=== PATIENT | male | born 1970 | race Caucasian/White ===

== ENCOUNTER → 2018-07-30 | Outpatient (REF) ==
[2018-07-30 14:00] LABS: ALBUMIN 2.7 GM/DL (3.2-5.2); BILIRUBIN,TOTAL 0.5 MG/DL (0.2-1.0); C REACTIVE PROTEIN QUANTITATIV 14.3 MG/DL (0.00-0.30); CALCIUM LEVEL 8.1 MG/DL (8.5-10.1); CREATININE FOR GFR 1.4 MG/DL (0.70-1.30); GLOMERULAR FILTRATION RATE 58.1 (>60); POTASSIUM SERUM 3.9 MEQ/L (3.5-5.1); TOTAL PROTEIN 7.2 GM/DL (6.4-8.2)
== END ==
LOC: M LAB REF 07:50
DX: Z00.00 Encounter for general adult medical examination without abnormal findings (principal)

== ENCOUNTER → 2021-04-18 | Outpatient (REF) | payer MEDICARE, MEDICAID | LOC: M LAB REF 13:53 | PROVIDERS: ATTEND Dermatology | DX: D22.4 Melanocytic nevi of scalp and neck (principal) ==

== ENCOUNTER → 2021-04-20 | Outpatient (CLI) | payer MEDICARE, MEDICAID | LOC: M SLEEP 20:00 | PROVIDERS: ATTEND Physician Assistant | DX: G47.33 Obstructive sleep apnea (adult) (pediatric) (principal) ==

== ENCOUNTER → 2021-06-21 | Outpatient (CLI) | payer MEDICARE, MEDICAID ==
[~2021-06-21] MED LIST: ADV100INH; ARIP1TAB6; CITA40TA7; CLIN1SOL; ESOM40CA35; KETO2SHA8; MONT10TA97; NYST1POW9; SERO50TA4 PO; TAMS1CAP17
== END ==
LOC: M SLEEP 20:00
PROVIDERS: ATTEND Physician Assistant
DX: G47.33 Obstructive sleep apnea (adult) (pediatric) (principal)

== ENCOUNTER 2021-07-03 18:57 | Emergency (ER) | payer MEDICARE, MEDICAID ==
[~2021-07-03] VITALS: Ht 149.9 cm; Wt 97.0 kg
[2021-07-03 19:53] LABS: HEMATOCRIT 44.5 % (42.0-52.0); HEMOGLOBIN 14.9 g/dl (13.5-17.5); MEAN CORPUSCULAR HEMOGLOBIN 29.9 pg (27.0-33.0); MEAN CORPUSCULAR HGB CONC 33.5 g/dl (32.0-36.5); MEAN CORPUSCULAR VOLUME 89.2 fl (80.0-96.0); PLATELET COUNT, AUTOMATED 273 10^3/uL (150-450); RED BLOOD COUNT 4.99 10^6/uL (4.30-6.10); WHITE BLOOD COUNT 12.5 10^3/uL (4.0-10.0)
[2021-07-03 20:13] LABS: BLOOD UREA NITROGEN 17 MG/DL (7-18); CALCIUM LEVEL 9.1 MG/DL (8.5-10.1); CARBON DIOXIDE LEVEL 26 MEQ/L (21-32); CHLORIDE LEVEL 108 MEQ/L (98-107); CREATININE FOR GFR 0.92 MG/DL (0.70-1.30); GLOMERULAR FILTRATION RATE > 60.0 (>60); GLUCOSE, FASTING 101 MG/DL (70-100); SODIUM LEVEL 140 MEQ/L (136-145)
[2021-07-03] MEDS ORDERED: ACETAMINOPHEN 325 MG TAB PO ONE (22:40)
[2021-07-04 00:08] VITALS: BP 156/86
[2021-07-04] MEDS ORDERED: ESOM40CA35 (16:05)
[2021-07-04] MEDS ORDERED: TAMS1CAP17 (16:05)
[2021-07-04] MEDS ORDERED: CLIN1SOL (16:05)
[2021-07-04] MEDS ORDERED: NYST1POW9 (16:05)
[2021-07-04] MEDS ORDERED: KETO2SHA8 (16:05)
[2021-07-04] MEDS ORDERED: SERO50TA4 PO (16:05)
[2021-07-04] MEDS ORDERED: MONT10TA97 (16:05)
[2021-07-04] MEDS ORDERED: CITA40TA7 (16:05)
[2021-07-04] MEDS ORDERED: ADV100INH (16:05)
[2021-07-04] MEDS ORDERED: ARIP1TAB6 (16:05)
== END 2021-07-04 00:09 | disposition home or self-care (01) ==
LOC: M ED 18:57
DX: R51.9 Headache, unspecified (principal); F79 Unspecified intellectual disabilities; K21.9 Gastro-esophageal reflux disease without esophagitis; G47.33 Obstructive sleep apnea (adult) (pediatric); J45.909 Unspecified asthma, uncomplicated; Z88.8 Allergy status to other drugs, medicaments and biological substances; Z79.899 Other long term (current) drug therapy

== ENCOUNTER 2021-07-04 15:45 | Emergency (ER) | payer MEDICARE, MEDICAID ==
[~2021-07-04] VITALS: Ht 157.5 cm; Wt 95.2 kg
[2021-07-04 15:46] VITALS: BP 141/96
[2021-07-04] MEDS ORDERED: ESOM40CA35 (16:05)
[2021-07-04] MEDS ORDERED: ADV100INH (16:05)
[2021-07-04] MEDS ORDERED: CLIN1SOL (16:05)
[2021-07-04] MEDS ORDERED: NYST1POW9 (16:05)
[2021-07-04] MEDS ORDERED: CITA40TA7 (16:05)
[2021-07-04] MEDS ORDERED: TAMS1CAP17 (16:05)
[2021-07-04] MEDS ORDERED: KETO2SHA8 (16:05)
[2021-07-04] MEDS ORDERED: MONT10TA97 (16:05)
[2021-07-04] MEDS ORDERED: SERO50TA4 PO (16:05)
[2021-07-04] MEDS ORDERED: ARIP1TAB6 (16:05)
== END 2021-07-04 22:45 | disposition left against medical advice (07) ==
LOC: M ED 15:45
DX: Z53.21 Procedure and treatment not carried out due to patient leaving prior to being seen by health care provider (principal)

== ENCOUNTER → 2021-07-05 | Outpatient (CLI) | payer MEDICARE, MEDICAID | LOC: M RAD 13:11 | PROVIDERS: ATTEND Physician Assistant Medical | DX: R05.9 Cough, unspecified (principal); R06.02 Shortness of breath ==

== ENCOUNTER → 2021-07-05 | Outpatient (REF) | payer MEDICARE, MEDICAID | LOC: M LAB REF 14:29 | PROVIDERS: ATTEND Physician Assistant Medical | DX: J02.9 Acute pharyngitis, unspecified (principal) ==

== ENCOUNTER → 2022-04-29 | Outpatient (REF) | payer MEDICARE, MEDICAID | LOC: M SFHCDERM 17:04 | PROVIDERS: ATTEND Physician Assistant | DX: L73.9 Follicular disorder, unspecified (principal) ==

== ENCOUNTER → 2022-06-12 | Outpatient (REF) | payer MEDICARE, MEDICAID | LOC: M SFHCDERM 17:27 | PROVIDERS: ATTEND Dermatology | DX: D22.4 Melanocytic nevi of scalp and neck (principal) ==

== ENCOUNTER → 2022-11-12 | Outpatient (CLI) | payer MEDICARE, MEDICAID | LOC: M SOG 15:46 | PROVIDERS: ATTEND Physician Assistant | DX: M79.645 Pain in left finger(s) (principal) ==

== ENCOUNTER 2023-01-15 06:20 | Day surgery (SDC) | payer MEDICARE, MEDICAID ==
[~2023-01-15] VITALS: Ht 160 cm; Wt 80.3 kg
[~2023-01-15 06:20] MED LIST changes: +ABIL1TAB13 PO; +ADV100INH INH; +BENZ0.5T2 PO; -CITA40TA7; +CITA40TA7 PO; +CLAR10CA3 PO; +CLIN1GEL22 TOP; +CLOT1CRE56 TOP; +QUET100T2 PO; +SERO1TAB PO
[2023-01-15] MEDS ORDERED: LR 1,000 ML IV SCH ×2 (06:35→08:30)
[2023-01-15] MEDS ORDERED: ACETAMINOPHEN 1000MG 100ML IV BAG As Ordered ONE (06:59)
[2023-01-15] MEDS ORDERED: propofoL 200 MG/20 ML VIAL As Ordered ONE (06:59)
[2023-01-15] MEDS ORDERED: ceFAZolin SOD 2 GM in IV 1 EA IV ONE (07:00)
[2023-01-15] MEDS ORDERED: SUGAMMADEX SODIUM 500 MG/5 ML VIAL (BRIDION) As Ordered ONE (07:00)
[2023-01-15] MEDS ORDERED: ONDANSETRON 4MG 2ML VIAL As Ordered ONE (07:00)
[2023-01-15] MEDS ORDERED: KETOROLAC 60MG 2ML VIAL As Ordered ONE (07:00)
[2023-01-15] MEDS ORDERED: LIDOCAINE 2% 100MG/5ML SDV (FOR ANES.) As Ordered ONE (07:00)
[2023-01-15] MEDS ORDERED: MIDAZOLAM INJ 2MG/2ML VIAL As Ordered ONE (07:01)
[2023-01-15] MEDS ORDERED: fentaNYL 100 MCG/2 ML INJECTION As Ordered ONE (07:01)
[2023-01-15] MEDS ORDERED: BACITRACIN OINTMENT 30GM TUBE As Ordered ONE (07:15)
[2023-01-15] MEDS ORDERED: ceFAZolin 2 GM/D5W 50 ML IV BAG As Ordered ONE (07:32)
[2023-01-15] MEDS ORDERED: HYDROMORPHONE HCL 0.5 MG/ 0.5 ML SYRINGE IV PRN (08:30)
[2023-01-15] MEDS ORDERED: oxyCODONE 5MG TAB PO PRN (08:30)
[2023-01-15] MEDS ORDERED: fentaNYL 100 MCG/2 ML INJECTION IV PRN (08:30)
[2023-01-15] MEDS ORDERED: ONDANSETRON 4MG 2ML VIAL IV PRN (08:30)
[2023-01-15 09:05] VITALS: BP 119/59; TEMP 97; O2SAT 98
== END 2023-01-15 09:31 | disposition home or self-care (01) ==
LOC: M SDC 06:20
PROVIDERS: ATTEND Orthopaedic Surgery Hand Surgery
DX: Q84.6 Other congenital malformations of nails (principal); G47.30 Sleep apnea, unspecified; K21.9 Gastro-esophageal reflux disease without esophagitis; F41.9 Anxiety disorder, unspecified; F31.60 Bipolar disorder, current episode mixed, unspecified; F42.9 Obsessive-compulsive disorder, unspecified; Z88.1 Allergy status to other antibiotic agents; Z88.8 Allergy status to other drugs, medicaments and biological substances; Z79.899 Other long term (current) drug therapy
CPT/HCPCS: 11760; 88302; J0131; J0665; J0690; J1100; J1885; J2250; J2405; J3010

== ENCOUNTER → 2023-12-16 | Outpatient (CLI) | payer MEDICARE, MEDICAID ==
[2023-12-16 10:21] LABS: BASO # 0.1 10^3/uL (0.0-0.2); BASO % 0.8 % (0.0-1.0); EOS # 0.3 10^3/uL (0.0-0.5); EOS % 3.7 % (0.0-3.0); HEMATOCRIT 41.7 % (42.0-52.0); HEMOGLOBIN 13.8 g/dl (13.5-17.5); LYMPH # 1.8 10^3/uL (1.5-5.0); LYMPH % 20.4 % (24.0-44.0); MEAN CORPUSCULAR HEMOGLOBIN 30.5 pg (27.0-33.0); MEAN CORPUSCULAR HGB CONC 33.1 g/dl (32.0-36.5); MEAN CORPUSCULAR VOLUME 92.1 fl (80.0-96.0); MONO # 0.8 10^3/uL (0.0-0.8); MONO % 9.5 % (2.0-8.0); NEUTROPHILS # 5.5 10^3/uL (1.5-8.5); NEUTROPHILS % 64.4 % (36.0-66.0); PLATELET COUNT, AUTOMATED 207 10^3/uL (150-450); RED BLOOD COUNT 4.53 10^6/uL (4.30-6.10); WHITE BLOOD COUNT 8.6 10^3/uL (4.0-10.0)
[2023-12-16 13:36] LABS: THYROID STIMULATING HORMONE 1.778 uIU/ML (0.55-4.78)
[2023-12-16 13:39] LABS: ALBUMIN 3.7 G/DL (3.2-5.2); ALKALINE PHOSPHATASE 62 U/L (46-116); ALT/SGPT 14 U/L (7.0-40); AST/SGOT 10 U/L (<34); BILIRUBIN,TOTAL 0.4 MG/DL (0.3-1.2); BLOOD UREA NITROGEN 12 MG/DL (9-23); CALCIUM LEVEL 9.5 MG/DL (8.5-10.1); CARBON DIOXIDE LEVEL 30 MMOL/L (20-31); CHLORIDE LEVEL 102 MMOL/L (98-107); CREATININE FOR GFR 0.78 MG/DL (0.70-1.30); GLOMERULAR FILTRATION RATE > 60.0 (>56); GLUCOSE, FASTING 54 MG/DL (60-100); POTASSIUM SERUM 4.6 MMOL/L (3.5-5.1); SODIUM LEVEL 135 MMOL/L (136-145); TOTAL PROTEIN 7.2 G/DL (5.7-8.2)
== END ==
LOC: M WUC 08:31
PROVIDERS: ATTEND Family Medicine
DX: J45.30 Mild persistent asthma, uncomplicated (principal); K21.9 Gastro-esophageal reflux disease without esophagitis; F31.60 Bipolar disorder, current episode mixed, unspecified; E03.9 Hypothyroidism, unspecified

== ENCOUNTER → 2024-07-27 | Outpatient (CLI) | payer MEDICARE, MEDICAID ==
[~2024-07-27] MED LIST changes: -ADV100INH; -ADV100INH INH; +ADVA1AER8; +ADVA1AER8 INH; +KETO120S5; -KETO2SHA8; +NYST1POW3; -NYST1POW9
[2024-07-27 17:35] LABS: HEMATOCRIT 39.8 % (42.0-52.0); HEMOGLOBIN 13.5 g/dl (13.5-17.5); MEAN CORPUSCULAR HEMOGLOBIN 31.8 pg (27.0-33.0); MEAN CORPUSCULAR HGB CONC 33.9 g/dl (32.0-36.5); MEAN CORPUSCULAR VOLUME 93.6 fl (80.0-96.0); PLATELET COUNT, AUTOMATED 195 10^3/uL (150-450); RED BLOOD COUNT 4.25 10^6/uL (4.30-6.10); WHITE BLOOD COUNT 6.8 10^3/uL (4.0-10.0)
[2024-07-27 17:42] LABS: ALBUMIN 3.9 G/DL (3.2-5.2); ALKALINE PHOSPHATASE 75 U/L (40-129); ALT/SGPT 13 U/L (7.0-40); AST/SGOT 13 U/L (<34); BILIRUBIN,TOTAL 0.4 MG/DL (0.3-1.2); BLOOD UREA NITROGEN 10 MG/DL (9-23); CARBON DIOXIDE LEVEL 31 MMOL/L (20-31); CHLORIDE LEVEL 97 MMOL/L (98-107); CREATININE FOR GFR 0.79 MG/DL (0.70-1.30); GLOMERULAR FILTRATION RATE > 90.0 (>56); GLUCOSE, FASTING 65 MG/DL (60-100); POTASSIUM SERUM 4.3 MMOL/L (3.5-5.1); SODIUM LEVEL 133 MMOL/L (136-145)
[2024-07-27 17:47] LABS: APPEARANCE, URINE CLEAR (CLEAR); BACTERIA, URINE AUTO NEGATIVE (NEGATIVE); BILIRUBIN, URINE AUTO NEGATIVE (NEGATIVE); BLOOD, URINE BLOOD NEGATIVE (NEGATIVE); COLOR, URINE STRAW (YELLOW); GLUCOSE, URINE (UA) AUTO NEGATIVE (NEGATIVE); KETONE, URINE AUTO NEGATIVE (NEGATIVE); LEUKOCYTE ESTERASE, URINE AUTO NEGATIVE (NEGATIVE); NITRITE, URINE AUTO NEGATIVE (NEGATIVE); PROTEIN, URINE AUTO NEGATIVE (NEGATIVE); RBC, URINE AUTO 1 /HPF (0-3); SPECIFIC GRAVITY URINE AUTO 1.004 (1.002-1.035); SQUAMOUS EPITHELIAL CELL UR AU 1 /HPF (0-6); UROBILINOGEN, URINE AUTO 0.2 mg/dL (0.0-2.0); WBC, URINE AUTO 1 /HPF (0-3)
== END ==
LOC: M WUC 14:58
PROVIDERS: ATTEND Family Medicine
DX: G47.33 Obstructive sleep apnea (adult) (pediatric) (principal); J45.30 Mild persistent asthma, uncomplicated; Z79.899 Other long term (current) drug therapy

== ENCOUNTER 2024-12-20 16:26 | Inpatient (IN) | payer MEDICARE, MEDICAID ==
[~2024-12-20] VITALS: Ht 162.6 cm; Wt 79.2 kg
[~2024-12-20 16:26] MED LIST changes: -MONT10TA97; +MONT10TA97 PO; -TAMS1CAP17; +TAMS1CAP17 PO
[2024-12-20] MEDS ORDERED: FLUV50TA PO (16:52)
[2024-12-20 21:00] LABS: BASO # 0.0 10^3/uL (0.0-0.2); BASO % 0.3 % (0.0-1.0); EOS # 0.2 10^3/uL (0.0-0.5); EOS % 3.0 % (0.0-3.0); LYMPH # 1.0 10^3/uL (1.5-5.0); LYMPH % 13.7 % (24.0-44.0); MONO # 0.6 10^3/uL (0.0-0.8); MONO % 8.2 % (2.0-8.0); NEUTROPHILS # 5.5 10^3/uL (1.5-8.5); NEUTROPHILS % 74.4 % (36.0-66.0); PLATELET COUNT, AUTOMATED 171 10^3/uL (150-450)
[2024-12-20] MEDS: NS (Normal Saline) 0.9% 1,000 ML IV ONE (21:32)
[2024-12-20] MEDS ORDERED: ISOVUE-370 76% 100 ML VIAL As Ordered ONE (21:52)
[2024-12-20] MEDS: ONDANSETRON 4MG 2ML VIAL IV ONE (23:03)
[2024-12-20] MEDS: MORPHINE 4 MG/ML 1 ML VIAL IV ONE (23:03)
[2024-12-20] MEDS: LIDOCAINE 2% 5 ML JELLY UROJET TOP ONE (23:10)
[2024-12-21] VITALS (7 sets, daily range): BP systolic 97–116; BP diastolic 61–72; TEMP 97.3–97.7; O2SAT 93–100
[2024-12-21] MEDS ORDERED: MAALOX 30 ML SUSP *UDC PO PRN (01:15)
[2024-12-21] MEDS ORDERED: MOM 30 ML SUSPENSION UDC PO PRN (01:15)
[2024-12-21] MEDS ORDERED: MORPHINE 4 MG/ML 1 ML VIAL IV PRN (02:35)
[2024-12-21] MEDS: NS (Normal Saline) 0.9% 1,000 ML IV SCH (02:56)
[2024-12-21] MEDS ORDERED: TAMSULOSIN 0.4 MG CAP PO ONE (03:00)
[2024-12-21] MEDS: TAMSULOSIN 0.4 MG CAP PO SCH (03:10)
[2024-12-21] MEDS: ENOXAPARIN 40 MG/0.4 ML SYRINGE (J1650 PER 10MG) SC SCH (08:25)
[2024-12-21] MEDS: PANTOPRAZOLE 40MG VIAL IV SCH (08:25)
[2024-12-21] MEDS: SIMETHICONE 40MG/0.6ML DROPS 30ML NG SCH (09:00)
[2024-12-21] MEDS: BENZTROPINE 0.5 MG TAB PO SCH (09:00)
[2024-12-21] MEDS ORDERED: GLUCAGON INJ 1 MG VIAL SC PRN (09:50)
[2024-12-21] MEDS ORDERED: GLUCOSE 4 GM CHEW PO PRN (09:50)
[2024-12-21 10:17] LABS: BASO # 0.0 10^3/uL (0.0-0.2); BASO % 0.4 % (0.0-1.0); EOS # 0.3 10^3/uL (0.0-0.5); EOS % 4.5 % (0.0-3.0); LYMPH # 1.1 10^3/uL (1.5-5.0); LYMPH % 16.0 % (24.0-44.0); MONO # 0.6 10^3/uL (0.0-0.8); MONO % 9.2 % (2.0-8.0); NEUTROPHILS # 4.7 10^3/uL (1.5-8.5); NEUTROPHILS % 68.9 % (36.0-66.0); PLATELET COUNT, AUTOMATED 167 10^3/uL (150-450)
[2024-12-21 10:48] LABS: CALCIUM LEVEL 8.1 MG/DL (8.5-10.1); CARBON DIOXIDE LEVEL 28 MMOL/L (20-31); CHLORIDE LEVEL 100 MMOL/L (98-107); CREATININE FOR GFR 0.81 MG/DL (0.70-1.30); GLOMERULAR FILTRATION RATE > 90.0 (>56); POTASSIUM SERUM 4.2 MMOL/L (3.5-5.1); SODIUM LEVEL 136 MMOL/L (136-145)
[2024-12-21] MEDS: BISACODYL 10 MG SUPP PR ONE (11:43)
[2024-12-21] MEDS: DEXTROSE 50% 50 ML SYRINGE IV PRN (12:41)
[2024-12-21] MEDS: D5W/0.9% SODIUM CHLORIDE 1,000 ML IV ONE (13:57)
[2024-12-21] MEDS ORDERED: MED REC IN PROGRESS XX SCH (14:40)
[2024-12-21] MEDS: D5W/0.9% SODIUM CHLORIDE 1,000 ML IV SCH (15:00)
[2024-12-21] MEDS: MAG SULF 1GM/100ML (MAG RUN) 1 GM in IV 1 EA IV ONE (15:00)
[2024-12-21] MEDS ORDERED: ARIP1TAB6 PO (16:35)
[2024-12-21] MEDS ORDERED: FLUTISP NARES (16:35)
[2024-12-21] MEDS ORDERED: QUET300T2 PO (16:35)
[2024-12-21] MEDS ORDERED: FLUV100T20 PO (16:35)
[2024-12-21] MEDS ORDERED: MED REC COMMENT (16:42)
[2024-12-21] MEDS ORDERED: HOME MED LIST COMPLETE! XX SCH (16:45)
[2024-12-21] MEDS ORDERED: QUEtiapine 300MG XR TABLET (SEROQUEL XR) PO SCH (21:00)
[2024-12-22] VITALS (7 sets, daily range): BP systolic 118–136; BP diastolic 76–86; TEMP 97.3–97.7; O2SAT 92–100
[2024-12-22] MEDS: BENZTROPINE 0.5 MG TAB PO SCH (01:35)
[2024-12-22 06:43] LABS: BASO # 0.0 10^3/uL (0.0-0.2); BASO % 0.2 % (0.0-1.0); EOS # 0.3 10^3/uL (0.0-0.5); EOS % 4.8 % (0.0-3.0); LYMPH # 0.8 10^3/uL (1.5-5.0); LYMPH % 15.7 % (24.0-44.0); MONO # 0.5 10^3/uL (0.0-0.8); MONO % 9.0 % (2.0-8.0); NEUTROPHILS # 3.6 10^3/uL (1.5-8.5); NEUTROPHILS % 69.7 % (36.0-66.0); PLATELET COUNT, AUTOMATED 152 10^3/uL (150-450)
[2024-12-22 07:34] LABS: CALCIUM LEVEL 7.9 MG/DL (8.5-10.1); CARBON DIOXIDE LEVEL 27 MMOL/L (20-31); CHLORIDE LEVEL 105 MMOL/L (98-107); CREATININE FOR GFR 0.66 MG/DL (0.70-1.30); GLOMERULAR FILTRATION RATE > 90.0 (>56); MAGNESIUM LEVEL 2.1 MG/DL (1.8-2.4); POTASSIUM SERUM 3.9 MMOL/L (3.5-5.1); SODIUM LEVEL 141 MMOL/L (136-145)
[2024-12-22] MEDS: FLUZONE VACCINE TRI PF(25-26) 0.5ML SYRINGE IM.IMMUN ONE (09:00)
[2024-12-22] MEDS: MAGNESIUM CITRATE 300 ML BTL NG ONE (09:52)
[2024-12-22] MEDS: DEXTROSE 50% 50 ML SYRINGE IV STA (15:26)
[2024-12-22] MEDS: D5W 1,000 ML IV ONE (15:26)
[2024-12-22] MEDS: D5W/0.45% SODIUM CHLORIDE 1,000 ML IV SCH (16:37)
[2024-12-23 03:15] VITALS: BP 104/70; TEMP 97.5; O2SAT 95
[2024-12-23 06:57] LABS: BASO # 0.0 10^3/uL (0.0-0.2); BASO % 0.6 % (0.0-1.0); EOS # 0.3 10^3/uL (0.0-0.5); EOS % 4.9 % (0.0-3.0); LYMPH # 1.2 10^3/uL (1.5-5.0); LYMPH % 19.4 % (24.0-44.0); MONO # 0.7 10^3/uL (0.0-0.8); MONO % 10.3 % (2.0-8.0); NEUTROPHILS # 4.1 10^3/uL (1.5-8.5); NEUTROPHILS % 64.3 % (36.0-66.0); PLATELET COUNT, AUTOMATED 167 10^3/uL (150-450)
[2024-12-23 07:18] LABS: CALCIUM LEVEL 7.9 MG/DL (8.5-10.1); CARBON DIOXIDE LEVEL 29 MMOL/L (20-31); CHLORIDE LEVEL 100 MMOL/L (98-107); CREATININE FOR GFR 0.71 MG/DL (0.70-1.30); GLOMERULAR FILTRATION RATE > 90.0 (>56); MAGNESIUM LEVEL 2.3 MG/DL (1.8-2.4); POTASSIUM SERUM 3.7 MMOL/L (3.5-5.1); SODIUM LEVEL 137 MMOL/L (136-145)
[2024-12-23 08:05] VITALS: BP 118/73; TEMP 97.5; O2SAT 92
[2024-12-23 11:40] VITALS: BP 116/75; TEMP 97.5; O2SAT 98
[2024-12-23 16:18] VITALS: BP 127/79; TEMP 97.5; O2SAT 95
[2024-12-23] MEDS: ACETAMINOPHEN 325 MG TAB PO PRN (19:42)
[2024-12-23 20:20] VITALS: BP 108/71; TEMP 97.5; O2SAT 95
[2024-12-24 04:23] VITALS: BP 102/69; TEMP 97.2; O2SAT 96
[2024-12-24 06:31] LABS: BASO # 0.0 10^3/uL (0.0-0.2); BASO % 0.4 % (0.0-1.0); EOS # 0.4 10^3/uL (0.0-0.5); EOS % 8.3 % (0.0-3.0); LYMPH # 1.5 10^3/uL (1.5-5.0); LYMPH % 28.8 % (24.0-44.0); MONO # 0.6 10^3/uL (0.0-0.8); MONO % 11.0 % (2.0-8.0); NEUTROPHILS # 2.7 10^3/uL (1.5-8.5); NEUTROPHILS % 50.2 % (36.0-66.0); PLATELET COUNT, AUTOMATED 166 10^3/uL (150-450)
[2024-12-24 06:55] LABS: CALCIUM LEVEL 8.1 MG/DL (8.5-10.1); CARBON DIOXIDE LEVEL 29 MMOL/L (20-31); CHLORIDE LEVEL 100 MMOL/L (98-107); CREATININE FOR GFR 0.76 MG/DL (0.70-1.30); GLOMERULAR FILTRATION RATE > 90.0 (>56); MAGNESIUM LEVEL 2.1 MG/DL (1.8-2.4); POTASSIUM SERUM 3.6 MMOL/L (3.5-5.1); SODIUM LEVEL 136 MMOL/L (136-145)
[2024-12-24 08:00] VITALS: BP 110/72; TEMP 97.2; O2SAT 96
[2024-12-24] MEDS: MIRALAX *UNIT DOSE* 17 GM PACKET PO SCH (09:15)
[2024-12-24 12:00] VITALS: BP 108/71; TEMP 97.3; O2SAT 96
== END 2024-12-24 14:00 | disposition home or self-care (01) | DRG 389 ==
LOC: M ED 16:26 → M ED INP 12-21 01:20 → M MSPAV 12-21 02:04
PROVIDERS: ADMIT Student in an Organized Health Care Education/Training Program; ATTEND General Practice
DX: K56.609 Unspecified intestinal obstruction, unspecified as to partial versus complete obstruction (principal); R18.8 Other ascites; K40.90 Unilateral inguinal hernia, without obstruction or gangrene, not specified as recurrent; N43.3 Hydrocele, unspecified; N36.8 Other specified disorders of urethra; N40.1 Benign prostatic hyperplasia with lower urinary tract symptoms; F31.9 Bipolar disorder, unspecified; F79 Unspecified intellectual disabilities; F41.9 Anxiety disorder, unspecified; F42.9 Obsessive-compulsive disorder, unspecified; R33.9 Retention of urine, unspecified; K59.00 Constipation, unspecified; G47.33 Obstructive sleep apnea (adult) (pediatric); E66.811 Obesity, class 1; R73.9 Hyperglycemia, unspecified; N32.89 Other specified disorders of bladder; Z68.30 Body mass index [BMI] 30.0-30.9, adult; Z79.899 Other long term (current) drug therapy; Z88.1 Allergy status to other antibiotic agents; Z88.8 Allergy status to other drugs, medicaments and biological substances